=== PATIENT | female | born 1990 | race Caucasian/White ===

== ENCOUNTER 2024-03-30 11:06 | Emergency (ER) | payer OTHER, SELFPAY ==
--- NOTE | ~2024-03-30 | US_ITS ---
EXAMINATION: US OB <=14 wk fetus w TV DATE: 03/30/2024 13:46 INDICATION: Vaginal bleeding and cramping during first trimester TECHNIQUE: Real-time pelvic ultrasound utilizing both a transvaginal and transabdominal probe was pe rformed. The interpreting radiologist was not present for the study. COMPARISON: None. FINDINGS: The uterus measures 12.3 x 7.9 x 9.7 cm. There is an intrauterine gestational sac. A yolk sac and fe flaco pole are identified. The crown rump length measures 6.1 cm, which correlates with an estimated ge stational age of 12 weeks and 4 days. heart motion is identified measuring 163 beats per minute (bpm) by M-mode Doppler. Cervical length measures 4.2 cm which is normal. The right and left ovaries are not visualized. There is no free fluid in the pelvis. IMPRESSION: 1. Single living fetus with heart rate of 163 bpm. 2. Gestational age by ultrasound of 12 weeks 4 day(s) +/- 1 week and 1 day with ultrasound estimated date of delivery ([facility]) of 10/08/2024. Reviewed, dictated and finalized at location A. [facility] IMPRESSION: 1. Single living fetus with heart rate of 163 bpm. 2. Gestational age by ultrasound of 12 weeks 4 day(s) +/- 1 week and 1 day wit h ultrasound estimated date of delivery ([facility]) of 10/08/2024.
[2024-03-30 11:18] VITALS: BP 138/80; PULSE 97; RESP 18; TEMP 36.6; O2SAT 100
[2024-03-30 12:23] LABS: Basophils Percent Auto 0.4 % (0.2-1.2); Eosinophils Absolute Auto 0.1 K/mm3 (0-0.3); Eosinophils Percent Auto 0.5 % (0-4.4); Hematocrit 37.8 % (37.0-47.0); Hemoglobin 12.7 g/dL (12.0-15.0); Immature Granulocyte Absolute 0.05 K/mm3 (0.00-0.031); Immature Granulocyte Percent A 0.5 % (0-0.5); Lymphocytes Absolute Auto 1.98 K/mm3 (0.9-3.2); Lymphocytes Percent Auto 17.9 % (18.3-44.2); Mean Corpuscular HGB Conc 33.6 g/dl (32-36); Mean Corpuscular Hemoglobin 29.6 pg (26-34); Mean Corpuscular Volume 88.1 fl (80-100); Mean Platelet Volume 10.1 fl (7.4-10.4); Monocytes Absolute Auto 0.6 K/mm3 (0.1-0.6); Monocytes Percent Auto 5.3 % (2.6-8.5); Neutrophils Absolute Auto 8.4 K/mm3 (1.3-6.7); Neutrophils Percent Auto 75.4 % (45.5-73.1); Platelet Count Result 290 k/mm3 (150-375); Red Blood Count 4.29 M/mm3 (4.2-5.4); Red Cell Distribution Width 13.3 % (11.5-14.5); White Blood Count 11.1 K/mm3 (4.5-10.0)
[2024-03-30 12:33] LABS: Alanine Aminotransferase 21 U/L (6-35); Albumin Level 4.4 g/dL (3.5-5.1); Alkaline Phosphatase 56 U/L (38-126); Anion Gap 5 mmol/L (4-12); Aspartate Amino Transferase 23 U/L (14-36); Bilirubin,Total 0.5 mg/dL (0.2-1.3); Blood Urea Nitrogen 13 mg/dL (7-17); Calcium 9.1 mg/dL (8.4-10.2); Carbon Dioxide 24 mmol/L (22-30); Chloride 104 mmol/L (98-107); Estimated CRCL calculation 145 ml/min; Estimated Glomerular Filt Rate > 60; Glucose 79 mg/dL (65-110); Potassium 3.9 mmol/L (3.4-5.0); Sodium 133 mmol/L (137-145)
[2024-03-30 12:36] LABS: Partial Thromboplastin Time 26.8 Seconds (22.3-36.8)
[2024-03-30 13:27] LABS: Add Urine Microscopic? NO; Appearance Urine Clear (Clear); Bilirubin Urine Negative (Negative); Blood Urine Negative (Negative); Color Urine Yellow (Yellow); Glucose Urine UA Negative (Negative); Ketones Urine Negative (Negative); Leukocyte Esterase Ur Negative LEU/UL (Negative); Nitrate Urine Negative (Negative); Protein Urine Negative (Negative); Specific Grav Ur 1.005 (1.001-1.035); Urobilinogen Urine 0.2 mg/dL (<2.0); pH Urine 6.5 (5.0-9.0)
[2024-03-30 14:19] VITALS: BP 122/79; PULSE 83; RESP 16; TEMP 36.6; O2SAT 99
--- NOTE | 2024-03-30 14:53 | ED.GENADULT ---
HPI - General Adult General Chief complaint: Vaginal Bleeding Stated complaint: 12 weeks preg, vag bleeding and cramping Time Seen by Provider: 03/30/24 12:01 History of Present Illness HPI narrative: Patient is a 33-year-old female who presents ER with vaginal bleeding. Ongoing for couple of days and has since dissipated. She still has slight lower abdominal cramping. No vaginal discharge. No urinary symptoms. She is a . She believes her blood type is O positive. Related Data Allergies Allergy/AdvReac Type Severity Reaction Status Date / Time No Known Allergies Allergy Verified 03/30/24 11:21 Review of Systems Review of Systems: All systems reviewed & are unremarkable except as noted in HPI and below Constitutional: Constitutional: Reports no additional constitutional complaints Cardiovascular: Cardiovascular: Reports no additional cardiovascular complaints Respiratory: Respiratory: Reports no additional respiratory complaints Genitourinary: Genitourinary: Reports abnormal vaginal bleeding, Denies dysuria, Reports pelvic pain, Denies flank pain and Denies vaginal discharge PMFSH Past Medical History Medical History (Updated 03/30/24 @ 14:55 by Jose Purdy MD) Healthy female adult Surgical History Surgical History (Updated 03/30/24 @ 14:55 by Jose Purdy MD) No pertinent past surgical history Exam Narrative: GENERAL: Well-appearing, well-nourished, and in no acute distress. HEAD: Normocephalic, atraumatic. ENT: Mucous membranes moist. CHEST: Clear to auscultation. No respiratory distress. HEART: Regular rate and rhythm. Normal peripheral pulses. : Normal external genitalia. No vaginal bleeding. Small amount of physiologic discharge. Cervix closed and nonfriable. ABDOMEN: Soft, nontender, nondistended. EXTREMITIES: Normal range of motion. No edema. SKIN: Warm, dry, no rash. NEURO: Alert and oriented x3. PSYCH: Normal mood and affect. Course Course Emergency Course: Unremarkable evaluation. Discharge home and follow-up with OB. Vital Signs Vital signs: Vital Signs Temperature 97.9 F 03/30/24 11:18 Pulse Rate 97 03/30/24 11:18 Respiratory Rate 18 03/30/24 11:18 Blood Pressure 138/80 03/30/24 11:18 Pulse Oximetry 100 03/30/24 11:18 Oxygen Delivery Room Air 03/30/24 11:18 Temperature 97.9 F 03/30/24 11:18 Pulse Rate 97 03/30/24 11:18 Respiratory Rate 18 03/30/24 11:18 Blood Pressure 138/80 03/30/24 11:18 Pulse Oximetry 100 03/30/24 11:18 Oxygen Delivery Room Air 03/30/24 11:18 Medical Decision Making Vital Signs Vital Signs: Vital Signs Temperature 97.9 F 03/30/24 11:18 Pulse Rate 97 03/30/24 11:18 Respiratory Rate 18 03/30/24 11:18 Blood Pressure 138/80 03/30/24 11:18 Pulse Oximetry 100 03/30/24 11:18 Oxygen Delivery Room Air 03/30/24 11:18 Temperature 97.9 F 03/30/24 11:18 Pulse Rate 97 03/30/24 11:18 Respiratory Rate 18 03/30/24 11:18 Blood Pressure 138/80 03/30/24 11:18 Pulse Oximetry 100 03/30/24 11:18 Oxygen Delivery Room Air 03/30/24 11:18 Lab Data 03/30/24 12:19 03/30/24 12:19 Labs: Lab Results 03/30/24 03/30/24 Range/Units 12:19 13:15 WBC 11.1 H (4.5-10.0) K/mm3 RBC 4.29 (4.2-5.4) M/mm3 Hgb 12.7 (12.0-15.0) g/dL Hct 37.8 (37.0-47.0) % MCV 88.1 (80-100) fl MCH 29.6 (26-34) pg MCHC 33.6 (32-36) g/dl RDW 13.3 (11.5-14.5) % Plt Count 290 (150-375) k/mm3 MPV 10.1 (7.4-10.4) fl Immature Gran % (Auto) 0.5 (0-0.5) % Neut % (Auto) 75.4 H (45.5-73.1) % Lymph % (Auto) 17.9 L (18.3-44.2) % [place] % (Auto) 5.3 (2.6-8.5) % Eos % (Auto) 0.5 (0-4.4) % Baso % (Auto) 0.4 (0.2-1.2) % Lymph # (Auto) 1.98 (0.9-3.2) K/mm3 [place] # (Auto) 0.6 (0.1-0.6) K/mm3 Eos # (Auto) 0.1 (0-0.3) K/mm3 Baso # (Auto) 0.0 (0.0-0.1) K/mm3 Abs Immat Gran (auto) 0.05 H (0.00-0.031) K/mm3 Absolute Neuts (auto) 8.4 H (1.3-6.7) K/mm3 Absolute Nucleated RBC 0.000 (0.0-0.012) K/mm3 Nucleated RBC % 0.0 (0.0-0.2) % PT 13.0 (11.1-14.7) Seconds INR 1.0 APTT 26.8 (22.3-36.8) Seconds Sodium 133 L (137-145) mmol/L Potassium 3.9 (3.4-5.0) mmol/L Chloride 104 (98-107) mmol/L Carbon Dioxide 24 (22-30) mmol/L Anion Gap 5 (4-12) mmol/L BUN 13 (7-17) mg/dL Creatinine 0.50 L (0.7-1.0) mg/dL Estim Creat Clear Calc 145 ml/min Estimated GFR > 60 (59 - ) Glucose 79 (65-110) mg/dL Calcium 9.1 (8.4-10.2) mg/dL Total Bilirubin 0.5 (0.2-1.3) mg/dL AST 23 (14-36) U/L ALT 21 (6-35) U/L Alkaline Phosphatase 56 (38-126) U/L Total Protein 7.0 (6.3-8.2) g/dL Albumin 4.4 (3.5-5.1) g/dL Beta HCG, Quant 05252.00 mIU/ML Urine Color Yellow (Yellow) Urine Appearance Clear (Clear) Urine pH 6.5 (5.0-9.0) Ur Specific [place] 1.005 (1.001-1.035) Urine Protein Negative (Negative) mg/dL Urine Glucose (UA) Negative (Negative) mg/dL Urine Ketones Negative (Negative) mg/dL Ur Blood (Man) Negative (Negative) Urine Nitrate Negative (Negative) Urine Bilirubin Negative (Negative) Urine Urobilinogen 0.2 (<2.0) mg/dL Leukocyte Esterase Rfl Negative (Negative) BONNY/UL Blood Type O Positive Antibody Screen Negative Screen Not Reportable Baby's Blood Type Not Reportable Baby's CHRISSIE Not Reportable Doses of RhIg Required 0 Imaging Data Radiologist's impression: ITS Impressions Obstetrics Ultrasound 03/30/24 13:54 IMPRESSION: 1. Single living fetus with heart rate of 163 bpm. 2. Gestational age by ultrasound of 12 weeks 4 day(s) +/- 1 week and 1 day with ultrasound estimated date of delivery ([facility]) of 10/08/2024. Discharge Plan Discharge Clinical Impression: Threatened Patient Disposition: Home, Self-Care Condition: Stable Instructions: Threatened Miscarriage (ED) Additional Instructions: Return to the emergency department if you develop severe abdominal pain, severe nausea and vomiting to the point where you are unable to keep down fluids, if you develop chest pain or difficulty breathing, blood in your stool, dizziness or fainting, or if you develop any other new or concerning symptoms as these could be signs of more serious medical illness. Try to stay well hydrated. Follow-up/Referrals: Khloe Schultz MD [Physician] - 1 Week UNKNOWN,DOCTOR [Primary Care Provider] -
== END 2024-03-30 15:06 | disposition home or self-care (01) ==
PROVIDERS: Emergency Provider Emergency Medicine
DX: O20.0 Threatened abortion (principal); O09.521 Supervision of elderly multigravida, first trimester; Z3A.12 12 weeks gestation of pregnancy
CPT/HCPCS: 36415; 76801; 76817; 80053; 81003; 84702; 85025; 85461; 85610; 85730; 86850; 86900; 86901; 99284